=== PATIENT | female | born 1975 | race Hispanic/Latino ===

== ENCOUNTER 2017-05-27 16:12 | Outpatient (CLI) | payer BC, OTHER ==
[2017-05-27 17:06] LABS: Hemoglobin 13.9 g/dL (12.0-16.0); Mean Corpuscular HGB CONC 31.7 g/dL (32.0-36.0); Mean Corpuscular Hemoglobin 29.8 pg (27.0-31.0); Mean Corpuscular Volume 94.2 fl (81.0-99.0); Mean Platelet Volume 8.1 fL (7.4-10.4); Platelet Count 304 thou/uL (130-400); RBC Distribution Width 14.8 % (11.5-14.5); Red Blood Cell (RBC) Count 4.67 mill/uL (4.20-5.40); White Blood Cell (WBC) Count 11.3 thou/uL (4.8-10.8)
[2017-05-27 17:14] LABS: BHCG - Serum Negative (NEGATIVE); Pregs Control Background? CLEAR/WHITE (CLR/WHITE); Pregs Control Bar Appear? YES (CONTROL BAR)
[2017-05-27 17:26] LABS: Anion Gap 8 mmol/L (10-20); BUN (Urea Nitrogen) 15 mg/dL (7.0-18.7); Calc. Creatinine Clearance 0 mL/min (70-130); Calcium 9.1 mg/dL (7.8-10.44); Carbon Dioxide 28 mmol/L (22-29); Chloride 104 mmol/L (98-107); Estimated GFR-MDRD Greater than 90; Glucose 105 mg/dL (70-105); Potassium 3.7 mmol/L (3.5-5.1); Sodium 136 mmol/L (136-145)
--- NOTE | 2017-05-29 09:01 | EKG ---
Test Reason : Blood Pressure : / mmHG Vent. Rate : 075 BPM Atrial Rate : 075 BPM P-R Int : 212 ms QRS Dur : 080 ms QT Int : 374 ms P-R-T Axes : 014 000 001 degrees QTc Int : 417 ms Sinus rhythm with sinus arrhythmia with 1st degree A-V block Minimal voltage criteria for LVH, may be normal variant Inferior infarct , age undetermined , possibly with Q's in III and aVF Abnormal ECG When compared with ECG of 22-MAR-2015 12:38, WI interval has increased Inferior infarct is now Present Confirmed by CRISTI SHAIKH ([id number]) on 05/29/2017 9:00:29 AM Referred By: PARADISE Confirmed By:CRISTI SHAIKH
== END 2017-05-27 16:13 | disposition home or self-care (01) ==
LOC: LABBT 16:12
PROVIDERS: ATTEND Obstetrics & Gynecology
DX: Z01.818 Encounter for other preprocedural examination (principal); N85.00 Endometrial hyperplasia, unspecified; N83.202 Unspecified ovarian cyst, left side
CPT/HCPCS: 80048; 84703; 85027; 86850; 86900; 86901; 93005; 93010

== ENCOUNTER 2017-06-02 07:15 | Day surgery (SDC) | payer BC, OTHER ==
[2017-05-27 16:35] VITALS: BMI 53.7
[2017-06-02] MEDS ORDERED: CEFAZOLIN/Water 2 GM/20 ML SYRINGE ONE (08:36)
--- NOTE | 2017-06-02 09:04 | HP ---
PREOPERATIVE DIAGNOSIS: Persistent left adnexal mass with endometrial hyperplasia. SCHEDULED PROCEDURE: Laparoscopic left oophorectomy with D and C da Yuliet assist. HISTORY OF PRESENT ILLNESS: Ms. Lemus has been my patient since 2016. She has a long history of me norrhagia, At that time a [employer] sono was performed which revealed an endometrial thickness of 10 mm an d a left ovarian cyst measuring 7.5 cm in greatest diameter, no free fluid. at that time revea led complex endometrial hyperplasia without atypia. Repeat ultrasound in May revealed persistent l eft ovarian cyst, slightly smaller but still present, no free fluid noted. The patient desires defin itive surgical management and D and C to be performed to rule out of complex hyperplasia. OB AND [employer] HISTORY: x1, no history of dysplasia. PAST MEDICAL HISTORY: Hypertension and morbid obesity. PAST SURGICAL HISTORY: Cholecystectomy. ALLERGIES: Denies. MEDICATIONS: Lisinopril and OCPs. SOCIAL HISTORY: Denies tobacco, alcohol, or IV drug abuse. FAMILY HISTORY: Noncontributory. REVIEW OF SYSTEMS: Noncontributory. PHYSICAL EXAMINATION: GENERAL: female. VITAL SIGNS: A 5 feet 7 inches, 357 pounds, BMI of 56, blood pressure 118/78. HEENT: Within normal limits. LUNGS: Clear to auscultation bilaterally. HEART: Regular rhythm. BREASTS: No masses bilaterally. ABDOMEN: Soft, nontender, no rebound or guarding. PELVIC: Vulva without lesions. Vagina without discharge. Cervix parous. Uterus unable to apprecia te on bimanual. Adnexa unable to appreciate on bimanual. EXTREMITIES: Without clubbing, cyanosis or edema. RADIOLOGY: Ultrasound with findings as noted in HPI. Laboratory reveals a normal base met hematocri t of 44%. Negative test. Blood type O positive. IMPRESSION: Morbid obesity with complex hyperplasia, no atypia and a persistent left adnexal mass. PROCEDURE: Laparoscopic management of left ovary. Low probability malignancy, we will drain intraab dominally and remove laparoscopically with da Yuliet robot assist, may need to remove the fallopian tu be on that side as well. We will perform D and C hysteroscopy. Anticipate nonmalignant results. Th e patient gives verbal and written informed consent.
[2017-06-02] MEDS ORDERED: Bupivacaine HCl 0.5%/Epinephrine 1:200,000/PF 30 ml Vial ONE (10:05)
[2017-06-02] MEDS ORDERED: Lidocaine 1% (PF) 30 ML VIAL ONE (10:05)
[2017-06-02] MEDS ORDERED: HYDROmorphone 0.5 MG/0.5 ML SYRINGE ONE (10:13)
[2017-06-02] MEDS ORDERED: Fentanyl 100 MCG/2 ML VIAL ONE ×3 (10:13→12:30)
[2017-06-02] MEDS ORDERED: Dexamethasone 20 MG/5 ML VIAL ONE (11:04)
[2017-06-02] MEDS ORDERED: PROPOFOL 200 MG/20 ML VIAL ONE (11:04)
[2017-06-02] MEDS ORDERED: Lidocaine 1% PF 5 ML VIAL ONE (11:04)
[2017-06-02] MEDS ORDERED: Ketorolac Tromethamine 30 MG/ML VIAL ONE (11:04)
[2017-06-02] MEDS ORDERED: Succinylcholine Chloride 20 MG/ML 10 ml SYRINGE FS ONE (11:04)
[2017-06-02] MEDS ORDERED: Ondansetron HCl/PF 4 MG/2 ML Vial ONE (11:04)
[2017-06-02] MEDS ORDERED: Glycopyrrolate 0.2 MG/ML 5 ML SYRINGE ONE (11:04)
[2017-06-02] MEDS ORDERED: SUGAMMADEX SODIUM 200 MG/2 ML VIAL ONE (11:52)
--- NOTE | 2017-06-02 13:32 | OP ---
DATE OF PROCEDURE: 06/02/2017 PREOPERATIVE DIAGNOSIS: A 6 cm simple left ovarian cyst persistent with endometrial hyperplasia. POSTOPERATIVE DIAGNOSIS: A 6 cm simple left ovarian cyst persistent with endometrial hyperplasia. PROCEDURES PERFORMED: Laparoscopic left salpingo-oophorectomy with da Yuliet robot assist and diagnos tic hysteroscopy with dilation and curettage. SURGEON: Jardo Matos M.D. GALVANIZING POT RUNNER: Sridhar Her D.O. ESTIMATED BLOOD LOSS: Less than 25 mL. ANESTHESIA: General endotracheal. MEDICATIONS: Two grams of Ancef preincision. DVT PROPHYLAXIS: SCDs. OPERATIVE FINDINGS: 1. Simple smooth excrescence of a left ovarian cyst with normal appearing omentum. No evidence of m alignancy. 2. Hemostasis, post left salpingo-oophorectomy. 3. Exuberant endometrium consistent with hyperplasia without atypia. Bilateral tubal ostia identifi ed. 4. No evidence of uterine perforation. 5. Minimal fluid loss at the end of hysteroscopy. DISPOSITION: To the recovery room in good condition. DESCRIPTION OF OPERATIVE PROCEDURE: After obtaining proper informed consent, the patient was taken t o the operating room where general endotracheal anesthesia was achieved without difficulty. The akua ent was prepped and draped in dorsal lithotomy position in Ollie stirrups. Side-hand speculum was pl aced in vagina, cervix identified. Hulka manipulator placed inside. Ashford catheter placed. Speculu m and tenaculum were removed and rod machine operator changed his gloves and turned his attention to the abdomina l portion of procedure. Superior aspect of the umbilicus, a 12 mm skin incision was made and a Veres s needle was placed inside the abdominal cavity. Confirmation of entry into peritoneal cavity via sa line drop test. Insufflation carried out to a pressure of 20 because of the patient's extreme morbid obesity. A 12 mm trocar was placed and confirmation entry into the peritoneal cavity while trauma t o the underlying viscera was noted. The patient was placed in Trendelenburg position and right and l eft lateral trocars placed lateral to the epigastric vessels for the da Yuliet as well as an 11 mm ass istant in the right upper quadrant. Fenestrated bipolar placed in the left hand and monopolar scisso r in the right. The left adnexa identified and was noted to be consistent with a benign serous cysta denoma. It was incised sharply, and the fluid suctioned out. The ovary and tube were placed on stre tc and the infundibulopelvic ligament was coagulated adjacent to the ovary. It was transected and c arried through the meso-ovarian to the level of the uteroovarian ligament. It was coagulated as well and into the broad level of the insertion of the fallopian tube into the uterus. This was coagulate d across, transected and the mesosalpinx transected as well. Specimen was excised and good hemostasi s noted on all pedicles. Retrieval bag was placed in the right lower quadrant trocar da Yuliet and th e specimen was removed from the abdominal cavity. Da Yuliet undocked. All trocars removed. Desuffla freddie carbon dioxide. Skin reapproximated x4 using 4-0 Monocryl. Legs were then rotated up and the lka manipulator was removed. Speculum was identified. The cervix was grasped with single tooth jordan culum, sounded to 11 cm, serially dilated to appropriate level. Hysteroscope was introduced, which p ictures were taken and confirming findings as noted in the operative findings and consistent with the patient's previous EMB. No areas looked to be obvious malignancy were noted. The hysteroscope was removed and circumferential curettage was carried out using the small toothed curette. The specimen was removed and sent for pathologic analysis. The tenaculum was removed and no significant bleeding was noted from the anterior lip of the cervix. Ashford catheter removed. The patient is awakened, ext ubated, and taken to recovery room in good condition.
[2017-06-02] MEDS ORDERED: HYDROcodone/Acetaminophen 5/325 mg Tablet ONE (13:47)
[2017-06-02] MEDS ORDERED: Promethazine HCl 25 MG/ML VIAL ONE (13:55)
== END 2017-06-02 14:17 | disposition home or self-care (01) ==
LOC: SDC 07:15
PROVIDERS: ATTEND Obstetrics & Gynecology
PROC: 0UB64ZZ Excision of Left Fallopian Tube, Percutaneous Endoscopic Approach (ICD-10-PCS; principal; 2017-06-02)
PROC: 0UB14ZZ Excision of Left Ovary, Percutaneous Endoscopic Approach (ICD-10-PCS; principal; 2017-06-02)
PROC: 0UDB7ZX Extraction of Endometrium, Via Natural or Artificial Opening, Diagnostic (ICD-10-PCS; principal; 2017-06-02)
PROC: 0UJD8ZZ Inspection of Uterus and Cervix, Via Natural or Artificial Opening Endoscopic (ICD-10-PCS; principal; 2017-06-02)
DX: N83.8 Other noninflammatory disorders of ovary, fallopian tube and broad ligament (principal); N85.00 Endometrial hyperplasia, unspecified; I10 Essential (primary) hypertension; E66.01 Morbid (severe) obesity due to excess calories; Z68.43 Body mass index [BMI] 50.0-59.9, adult; Z79.3 Long term (current) use of hormonal contraceptives; Z79.899 Other long term (current) drug therapy
CPT/HCPCS: 88305; 96374; J0131; J0670; J1100; J1170; J1885; J2001; J2405; J2550; J2704; J2920; J3010; Q9968

== ENCOUNTER 2018-09-15 19:04 | Inpatient (IN) | payer BC ==
[~2018-09-15 19:04] MED LIST: ISOVUE-370 76%-LOCM 1 ML ONE
[2018-09-15] MEDS ORDERED: Piperacillin/Tazobactam 4.5 GM VIAL ONE (19:27)
[2018-09-15] MEDS ORDERED: Sodium Chloride 0.9% 0 ML ONE (19:27)
[2018-09-15] MEDS ORDERED: Morphine 4 MG/ML VIAL ONE (19:36)
[2018-09-15] MEDS ORDERED: Ondansetron PF 4 MG/2 ML Vial ONE (19:36)
[2018-09-15 19:50] LABS: #Basophils 0.1 thou/uL (0.0-0.2); #Lymphocytes 2.5 thou/uL (1.20-3.40); #Monocytes 1.9 thou/uL (0.11-0.59); #Neutrophils 14.4 thou/uL (1.40-6.50); %Basophils 0.3 % (0.0-1.0); %Eosinophils 0.2 % (0.0-10.0); %Lymphocytes 13.4 % (21.0-51.0); %Monocytes 9.8 % (0.0-10.0); %Neutrophils 76.2 % (42.0-75.0); Hemoglobin 14.3 g/dL (12.0-16.0); Mean Corpuscular HGB CONC 33.7 g/dL (32.0-36.0); Mean Corpuscular Volume 95.2 fL (78.0-98.0); Mean Platelet Volume 8.5 fL (7.4-10.4); Platelet Count 253 thou/uL (130-400); RBC Distribution Width 13.1 % (11.5-14.5); Red Blood Cell (RBC) Count 4.47 mill/uL (4.20-5.40); White Blood Cell (WBC) Count 18.9 thou/uL (4.8-10.8)
[2018-09-15 20:13] LABS: ALT (SGPT) 29 U/L (8-55); AST (SGOT) 14 U/L (5-34); Albumin 3.5 g/dL (3.5-5.0); Alkaline Phosphatase 101 U/L (40-150); Anion Gap 13 mmol/L (10-20); BUN (Urea Nitrogen) 7 mg/dL (7.0-18.7); Calc. Creatinine Clearance 0 mL/min (70-130); Carbon Dioxide 24 mmol/L (22-29); Chloride 98 mmol/L (98-107); Estimated GFR-MDRD 90; Globulin 3.5 g/dL (2.4-3.5); Glucose 166 mg/dL (70-105); Lipase 23 U/L (8-78); Potassium 3.8 mmol/L (3.5-5.1); Sodium 131 mmol/L (136-145)
--- NOTE | 2018-09-15 20:39 | CT ---
CT ABDOMEN AND PELVIS WITH IV CONTRAST: 09/15/18 HISTORY: Right lower quadrant abdominal pain and nausea. COMPARISON: None available. FINDINGS: The lung bases are clear. Post cholecystectomy changes are noted. The liver, spleen, pancreas, bilateral adrenal glands, kidneys, and abdominal aorta demonstrates a no rmal CT appearance. The urinary bladder is decompressed and not well evaluated on this exam. The appendix is dilated measuring up to 12 mm with prominent amount of periappendiceal inflammatory c hanges seen suggesting appendicitis. No fluid collection is seen to suggest an abscess, and there is no free intraperitoneal gas identified. No lymphadenopathy is seen. There is a surgical clip seen in the anterior pelvis. There is a hypodense structure seen within the subcutaneous adipose layer right posterior gluteal reg ion measuring 2.8 cm x 1.5 cm. Exact etiology is uncertain. This could be related to small contusion in this region or possibly secondary to prior injection. This is not thought to represent a sebaceous cyst given appearance and location. There are degenerative changes seen in the spine. IMPRESSION: 1. Acute appendicitis. 2. Above findings discussed with LIDYA Leung in the Emergency Department on 09/15/18 at 2026 hours. POS: CANDIS
[2018-09-15 21:49] LABS: Bilirubin Negative (Negative); Blood, Urine Negative (Negative); Clarity Clear (Clear); Glucose, Urine (Dipstick) Normal (Negative); Leukocyte Negative Leu/uL (Negative); Nitrite Negative (Negative); Protein, Urine (Dipstick) Negative (Neg-Trace); Urobilinogen Normal mg/dL (Less than 2)
[2018-09-15 21:54] LABS: Pregnancy Test - Urine (BHCG) Negative (Negative); Pregu Control Background? CLEAR/WHITE (CLR/WHITE); Pregu Control Bar Appear? YES (CONTROL BAR); Specific Gravity 1.049 (1.002-1.036)
[2018-09-15] MEDS ORDERED: Ondansetron PF 4 MG/2 ML Vial IVP PRN (22:08)
[2018-09-15] MEDS ORDERED: Ondansetron ODT 4 MG TAB SL PRN (22:08)
[2018-09-15 22:10] VITALS: BMI 53.8
[2018-09-15] MEDS: Sodium Chloride 0.9% 1,000 ML IV SCH (22:25)
[2018-09-15] MEDS: Morphine 4 MG/ML VIAL SLOW IVP PRN (22:29)
[2018-09-15 23:38] LABS: Lactic Acid 1.8 mmol/L (0.5-2.2)
[2018-09-16] MEDS: Sodium Chloride 0.9% 1,000 ML IV SCH ×2 (01:26→16:13)
[2018-09-16] MEDS: Piperacillin/Tazobactam 4.5 GM in Sodium Chloride 0.9% 100 ML IVPB SCH ×4 (01:27→20:02)
[2018-09-16] MEDS: Morphine 4 MG/ML VIAL SLOW IVP PRN ×2 (02:52→08:10)
[2018-09-16] MEDS ORDERED: Ketorolac Tromethamine 30 MG/ML VIAL IVP PRN (07:57)
[2018-09-16] MEDS ORDERED: Acetaminophen 1,000 MG in Premix Bag 1 BAG IVPB PRN (07:59)
[2018-09-16] MEDS ORDERED: Sodium Chloride 0.9% 1,000 ML IV SCH (08:00)
[2018-09-16] MEDS ORDERED: Ketorolac Tromethamine 30 MG/ML VIAL IVP SCH (08:00)
[2018-09-16] MEDS ORDERED: Acetaminophen 1,000 MG in Premix Bag 1 BAG IVPB SCH (08:00)
--- NOTE | 2018-09-16 08:14 | HP ---
HISTORY OF PRESENT ILLNESS: Jaclyn Lemus is a 43-year-old female, acute onset of pain Wednesday, today is Wednesday. She presented to the emergency room late yesterday evening. She had, had pain in her central abdomen, localizing to her right lower quadrant. She has suffered anorexia and increased pain with movement. In the emergency room, her white count is noted to be 18,000, hemoglobin 14. Basic metabolic profile normal. Bilirubin 2. CAT scan of the abdomen and pelvis obtained reveals changes consistent with appendicitis. ALLERGIES: NONE. TOBACCO: None. ALCOHOL: Occasionally. MEDICATIONS: None routinely. PAST SURGICAL HISTORY: Laparoscopic cholecystectomy, left oophorectomy, and right hand surgery. PAST MEDICAL HISTORY: Hypertension. REVIEW OF SYSTEMS: Ten-point noncontributory. 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 PHYSICAL EXAMINATION: VITAL SIGNS: Height 5 feet 7 inches, 344 pounds, 53 BMI, 98.2 degrees, 107, 122/78. HEAD, EARS, EYES, NOSE AND THROAT: Unremarkable. LUNGS: Clear to auscultation. CARDIAC: Regular rate and rhythm without murmur or gallop. ABDOMEN: Soft, obese, tenderness in right lower quadrant. No guarding or rebound. EXTREMITIES: Unremarkable. No ankle edema. Palpable pulses. NEUROLOGICAL: Intact. LYMPH: No lymphadenopathy at neck, axilla or groin. ASSESSMENT AND PLAN: Acute appendicitis. Recommend laparoscopic video appendectomy. Risks of infection, bleeding, reoperation explained. She consents. Job ID: [id number]
[2018-09-16] MEDS: Scopolamine 1.5 mg/72 hour Patch TD SCH (08:17)
[2018-09-16] MEDS ORDERED: Bupivacaine/Epinephrine 0.25% 30 ML VIAL ONE (11:22)
[2018-09-16] MEDS ORDERED: Fentanyl 100 MCG/2 ML VIAL ONE ×2 (11:27→14:10)
[2018-09-16] MEDS ORDERED: Midazolam HCl 2 mg/2 ml Vial ONE (11:27)
[2018-09-16] MEDS ORDERED: Piperacillin/Tazobactam 4.5 GM in Sodium Chloride 0.9% 100 ML IVPB SCH (12:00)
[2018-09-16] MEDS ORDERED: traMADol HCl 50 MG TAB PO PRN (12:14)
[2018-09-16] MEDS ORDERED: Ondansetron ODT 8 MG TAB SL PRN (13:21)
[2018-09-16] MEDS ORDERED: SUGAMMADEX SODIUM 200 MG/2 ML VIAL ONE (13:21)
[2018-09-16] MEDS ORDERED: Morphine 4 MG/ML VIAL SLOW IVP PRN (13:21)
[2018-09-16] MEDS ORDERED: Ondansetron ODT 8 MG TAB PO PRN (13:21)
[2018-09-16] MEDS ORDERED: Ondansetron HCl/PF 8 MG in Sodium Chloride 0.9% 50 ML IVPB SCH (13:30)
[2018-09-16] MEDS ORDERED: Promethazine HCl 25 MG/ML VIAL IM PRN (13:53)
[2018-09-16] MEDS ORDERED: Promethazine HCl 25 MG/ML VIAL SLOW IVP PRN (13:53)
[2018-09-16] MEDS ORDERED: Ondansetron HCl/PF 4 MG/2 ML Vial IVP PRN (13:53)
--- NOTE | 2018-09-16 14:34 | OP ---
DATE OF PROCEDURE: 09/16/2018 PREOPERATIVE DIAGNOSIS: Gangrenous appendix with abscess. POSTOPERATIVE DIAGNOSIS: Gangrenous appendix with abscess. PROCEDURE PERFORMED: Laparoscopic video appendectomy with placement of drain and drainage of peritoneal abscess. Very complicated procedure due to morbid obesity, requiring a long trocar. ANESTHESIA: General anesthesia, local of 0.5% Marcaine with epinephrine. DESCRIPTION OF PROCEDURE: The patient was taken to the operating room, where under general anesthesia, Ashford catheter was placed at the beginning of the procedure and removed at the end. Abdomen was prepared with ChloraPrep and draped in routine fashion. Local anesthetic was infiltrated in the skin and subcutaneous tissue about each port site. The patient is morbidly obese and landmarks were affected by her obesity. Right lateral subcostal incision was made and pneumoperitoneum to 15 mmHg was obtained with a Veress needle, replaced it with a long 5 port. Another 5 port placed in the mid abdomen under laparoscopic visualization. Lower midline incision made, and a 12 port placed and then exchanged for a longer port due to her morbid obesity. Appendix was well off in the right pelvis. Right tube and ovary were involved. These were bluntly dissected free. Gangrenous appendix dissected free. This was very difficult due to her obesity and inflammation. The mesoappendix was taken down with the LigaSure. Gangrenous appendix and fecalith identified, dissected free down to the cecum. Cecal stump was stapled with the Endo blue load TOM stapler. The appendix then placed in Endobag and removed. Area irrigated. A #19 gold LUPE drain placed in the right pelvis and gutter and secured with 3-0 nylon suture and brought out through the right subcostal port site. Sterile dressing applied. Area irrigated. Irrigant evacuated. Hemostasis noted. All instruments were removed. All skin incisions were approximated with interrupted subdermal 4-0 Monocryl. Job ID: [id number]
[2018-09-16] MEDS: Ketorolac Tromethamine 30 MG/ML VIAL IVP PRN ×2 (16:13→21:34)
[2018-09-16] MEDS: Enoxaparin Sodium 40 MG/0.4 ML SYRINGE SC SCH (20:03)
[2018-09-16] MEDS: traMADol HCl 50 MG TAB PO PRN (21:33)
[2018-09-16] MEDS: Ondansetron ODT 4 MG TAB PO PRN (21:34)
[2018-09-17] MEDS: Piperacillin/Tazobactam 4.5 GM in Sodium Chloride 0.9% 100 ML IVPB SCH ×4 (02:00→20:40)
[2018-09-17] MEDS: Sodium Chloride 0.9% 1,000 ML IV SCH ×3 (02:01→14:57)
[2018-09-17] MEDS: Ketorolac Tromethamine 30 MG/ML VIAL IVP PRN (03:43)
[2018-09-17] MEDS: traMADol HCl 50 MG TAB PO PRN ×3 (03:43→17:52)
[2018-09-17] MEDS: Ondansetron ODT 4 MG TAB PO PRN ×3 (03:44→17:52)
[2018-09-17 04:57] LABS: Anion Gap 11 mmol/L (10-20); BUN (Urea Nitrogen) 8 mg/dL (7.0-18.7); Calc. Creatinine Clearance 269 mL/min (70-130); Carbon Dioxide 23 mmol/L (22-29); Chloride 105 mmol/L (98-107); Estimated GFR-MDRD Greater than 90; Glucose 136 mg/dL (70-105); Potassium 3.6 mmol/L (3.5-5.1); Sodium 135 mmol/L (136-145)
[2018-09-17 05:04] LABS: Band 10 % (5-11); Hemoglobin 12.1 g/dL (12.0-16.0); Lymphocytes 6 % (21-51); MDiff Complete? YES; Mean Corpuscular HGB CONC 33.4 g/dL (32.0-36.0); Mean Corpuscular Hemoglobin 32.5 pg (27.0-31.0); Mean Corpuscular Volume 97.4 fL (78.0-98.0); Mean Platelet Volume 8.1 fL (7.4-10.4); Monocytes 7 % (0-10); Neutrophil 77 % (42-75); Platelet Count 210 thou/uL (130-400); Platelet Morphology Comment Appears Adequate; Red Blood Cell (RBC) Count 3.71 mill/uL (4.20-5.40)
[2018-09-17] MEDS: Ibuprofen 600 MG TAB PO PRN ×2 (08:54→14:46)
--- NOTE | 2018-09-17 10:08 | PRG ---
DATE OF SERVICE: 09/17/2018 SUBJECTIVE: The patient reports the pain is okay. She is tolerating a regular diet. Rare nausea. No flatus or bowel movement yet. OBJECTIVE: VITAL SIGNS: Temperature is 97.5, pulse 70, and blood pressure 108/70. GENERAL: She is awake and alert, does not appear to be in any distress. ABDOMEN: Obese, soft, and moderate tenderness. LABORATORY DATA: Her white counts elevated to 20, H and H 12 and 36, and platelet count 210. Electrolytes, her glucose is 136. ASSESSMENT: Status post ruptured appendectomy. PLAN: Continue antibiotics. Job ID: [id number]
[2018-09-17] MEDS: Acetaminophen 500 MG TAB PO PRN ×2 (11:27→17:53)
[2018-09-17] MEDS: Enoxaparin Sodium 40 MG/0.4 ML SYRINGE SC SCH (20:39)
[2018-09-18] MEDS: Ibuprofen 600 MG TAB PO PRN ×3 (00:20→20:11)
[2018-09-18] MEDS: traMADol HCl 50 MG TAB PO PRN ×4 (00:20→20:11)
[2018-09-18] MEDS: Ondansetron ODT 4 MG TAB PO PRN ×4 (00:21→20:11)
[2018-09-18] MEDS: Piperacillin/Tazobactam 4.5 GM in Sodium Chloride 0.9% 100 ML IVPB SCH ×4 (01:20→20:05)
[2018-09-18] MEDS: Sodium Chloride 0.9% 1,000 ML IV SCH ×3 (01:20→20:05)
--- NOTE | 2018-09-18 13:05 | PRG ---
DATE OF SERVICE: 09/18/2018 SUBJECTIVE: The patient is passing some gas. No bowel movement. She is still having a quite a bit of pain she says, she is still taking a lot of narcotic. OBJECTIVE: VITAL SIGNS: Temperature is 98.1, pulse 81, blood pressure 143/80. GENERAL: She looks good. She is eating a regular diet. ABDOMEN: Morbidly obese. The incisions are healing well. She has had 50 out in her LUPE, that is fairly serous. ASSESSMENT: Status post ruptured appendectomy. PLAN: Continue IV antibiotics. Home soon. Job ID: [id number]
[2018-09-18] MEDS: Ketorolac Tromethamine 30 MG/ML VIAL IVP PRN (13:32)
[2018-09-18] MEDS: Enoxaparin Sodium 40 MG/0.4 ML SYRINGE SC SCH (20:05)
[2018-09-19] MEDS: Sodium Chloride 0.9% 1,000 ML IV SCH ×2 (01:13→02:31)
[2018-09-19] MEDS: Piperacillin/Tazobactam 4.5 GM in Sodium Chloride 0.9% 100 ML IVPB SCH ×2 (02:29→09:05)
[2018-09-19] MEDS: Ondansetron ODT 4 MG TAB PO PRN ×2 (02:30→09:08)
[2018-09-19] MEDS: Ibuprofen 600 MG TAB PO PRN ×2 (02:30→09:18)
[2018-09-19] MEDS: traMADol HCl 50 MG TAB PO PRN ×2 (02:30→09:06)
[2018-09-19 06:21] LABS: #Eosinphils 0.1 thou/uL (0.0-0.7); #Lymphocytes 1.5 thou/uL (1.20-3.40); #Monocytes 0.7 thou/uL (0.11-0.59); #Neutrophils 5.1 thou/uL (1.40-6.50); %Basophils 0.3 % (0.0-1.0); %Eosinophils 1.9 % (0.0-10.0); %Lymphocytes 20.2 % (21.0-51.0); %Neutrophils 68.6 % (42.0-75.0); Hemoglobin 10.8 g/dL (12.0-16.0); Mean Corpuscular HGB CONC 32.9 g/dL (32.0-36.0); Mean Corpuscular Hemoglobin 32.5 pg (27.0-31.0); Mean Corpuscular Volume 98.8 fL (78.0-98.0); Mean Platelet Volume 7.9 fL (7.4-10.4); Platelet Count 244 thou/uL (130-400); RBC Distribution Width 12.9 % (11.5-14.5); Red Blood Cell (RBC) Count 3.33 mill/uL (4.20-5.40); White Blood Cell (WBC) Count 7.5 thou/uL (4.8-10.8)
[2018-09-19] MEDS: Scopolamine 1.5 mg/72 hour Patch TD SCH (09:05)
[2018-09-19 11:28] VITALS: BP 126/85; TEMP 97.8
--- NOTE | 2018-09-19 12:40 | PRG ---
DATE OF SERVICE: 09/19/2018 SUBJECTIVE: Jaclyn Lemus is doing well today. She is afebrile. Her white count is normal. LUPE drainage is serous and decreased volume. OBJECTIVE: LUNGS: Clear to auscultation. CARDIAC: Regular rate and rhythm without murmur or gallop. ABDOMEN: Soft, obese, nontender. ASSESSMENT: Acute appendicitis. PLAN: Discharge home on Augmentin, Ultram, Motrin, Tylenol p.r.n. pain. Follow up in my office in 2 to 3 weeks. She is interested in bariatric surgery, we will give her information. She will take off work for a week and return to work a week from now on September 26. Job ID: [id number]
--- NOTE | 2018-09-19 16:01 | DIS ---
DATE OF ADMISSION: 09/15/2018 DATE OF DISCHARGE: 09/19/2018 DISCHARGE DIAGNOSES: 1. Acute appendicitis. 2. Status post laparoscopic cholecystectomy. 3. Morbid obesity, 53 body mass index, 5 feet 7 inches, and 344 pounds. HISTORY AND HOSPITAL COURSE: A 43-year-old female, who presents to the emergency room with neglected appendicitis. She has had pain for 2 to 3 days[address] CAT scan revealed findings consistent with appendicitis. She will receive intravenous antibiotics and fluids and overnight and the next morning, underwent laparoscopic video appendectomy. Postoperatively, she did well. She was kept in the hospital due to a gangrenous appendix with inflammation and a preoperative fever. She convalesced, taking her diet. She did not have a fever. White count is normal. LUPE drain is removed. She would be discharged home. Job ID: [id number]
[2018-09-19] MEDS ORDERED: Amoxicillin/Potassium Clav 875 MG TAB PO SCH (21:00)
== END 2018-09-19 15:45 | disposition home or self-care (01) | DRG 339 ==
LOC: ERS 19:04 → SURG A 20:51 → OBSVTOIN 20:51
PROVIDERS: ADMIT Specialist; ATTEND Specialist
PROC: 0DTJ4ZZ Resection of Appendix, Percutaneous Endoscopic Approach (ICD-10-PCS; principal; 2018-09-16)
PROC: 0D9W40Z Drainage of Peritoneum with Drainage Device, Percutaneous Endoscopic Approach (ICD-10-PCS; 2018-09-16)
DX: K35.33 Acute appendicitis with perforation, localized peritonitis, and gangrene, with abscess (principal); Z68.43 Body mass index [BMI] 50.0-59.9, adult; K35.891 Other acute appendicitis without perforation, with gangrene; E66.01 Morbid (severe) obesity due to excess calories; Z90.49 Acquired absence of other specified parts of digestive tract
CPT/HCPCS: 36415; 74177; 80048; 80053; 81003; 81025; 83605; 83690; 84484; 85025; 87040; 88304; 93005; 96361; 96365; 96366; 96375; J0131; J1650; J1885; J2250; J2270; J2405; J2543; J3010; J3490; Q0162

== ENCOUNTER 2018-11-23 09:53 | Outpatient (CLI) | payer BC ==
--- NOTE | 2018-12-13 10:43 | MMO ---
Bilateral MAMMO Bilat Screen [facility]. CLINICAL HISTORY: Patient is 43 years old and is seen for screening. The patient has no family history of breast cancer. The patient has no personal history of cancer. VIEWS: The views performed were: bilateral craniocaudal with tomosynthesis; bilateral mediolateral oblique with tomosynthesis; left craniocaudal; and left mediolateral. FILMS COMPARED: The present examination has been compared to a prior imaging study performed at [facility] on 04/05/2015. This study has been interpreted with the assistance of computer-aided detection. MAMMOGRAM FINDINGS: There are scattered fibroglandular densities. There are no suspicious masses, suspicious calcifications, or new areas of architectural distortion. IMPRESSION: THERE IS NO MAMMOGRAPHIC EVIDENCE OF MALIGNANCY. A ROUTINE FOLLOW-UP MAMMOGRAM IN 1 YEAR IS RECOMMENDED. THE RESULTS OF THIS EXAM WERE SENT TO THE PATIENT. ACR BI-RADS Category 1 - Negative MAMMOGRAPHY NOTE: 1. A negative mammogram report should not delay a biopsy if a dominant of clinically suspicious mass is present. 2. Approximately 10% to 15% of breast cancers are not detected by mammography. 3. Adenosis and dense breasts may obscure an underlying neoplasm. Reported by: BASHIR SETH MD Electonically Signed: [id number]
== END 2018-11-23 09:54 | disposition home or self-care (01) ==
LOC: BICMAMMO 09:53
PROVIDERS: ATTEND Family Medicine
DX: Z12.31 Encounter for screening mammogram for malignant neoplasm of breast (principal)
CPT/HCPCS: 77063; 77067

== ENCOUNTER 2019-02-27 10:29 | Outpatient (CLI) | payer BC ==
--- NOTE | 2019-02-27 10:42 | RAD ---
Exam:2 views right hand HISTORY: Pain in the first digit COMPARISON: None FINDINGS: Mildly displaced fracture involving the proximal aspect of the proximal joint space of the first digit. There is extension into the first metacarpal phalangeal joint space. No additional fractures. IMPRESSION: Intra-articular extension of a displaced fracture of the proximal aspect of the proximal phalanx of the first digit.
== END 2019-02-27 10:30 | disposition home or self-care (01) ==
LOC: BICRAD 10:29
PROVIDERS: ATTEND Family Medicine
DX: M79.644 Pain in right finger(s) (principal); S62.511A Displaced fracture of proximal phalanx of right thumb, initial encounter for closed fracture
CPT/HCPCS: 80053; 80061; 83036

== ENCOUNTER 2019-12-25 15:49 | Outpatient (CLI) | payer BC ==
--- NOTE | 2019-12-25 16:22 | MMO ---
Bilateral MAMMO Bilat Screen [facility]. CLINICAL HISTORY: Patient is 44 years old and is seen for screening. The patient has no family history of breast cancer. The patient has no personal history of cancer. VIEWS: The views performed were: bilateral craniocaudal with tomosynthesis and bilateral mediolateral oblique with tomosynthesis. FILMS COMPARED: The present examination has been compared to [place] [facility] [place], and at [facility] on 04/05/2015. This study has been interpreted with the assistance of computer-aided detection. MAMMOGRAM FINDINGS: The breasts are almost entirely fat. There are no suspicious masses, suspicious calcifications, or new areas of architectural distortion. IMPRESSION: THERE IS NO MAMMOGRAPHIC EVIDENCE OF MALIGNANCY. A ROUTINE FOLLOW-UP MAMMOGRAM IN 1 YEAR IS RECOMMENDED. THE RESULTS OF THIS EXAM WERE SENT TO THE PATIENT. ACR BI-RADS Category 1 - Negative MAMMOGRAPHY NOTE: 1. A negative mammogram report should not delay a biopsy if a dominant of clinically suspicious mass is present. 2. Approximately 10% to 15% of breast cancers are not detected by mammography. 3. Adenosis and dense breasts may obscure an underlying neoplasm. Reported by: HERNANDEZ HERMOSILLO MD Electonically Signed: [id number]
== END 2019-12-25 15:50 | disposition home or self-care (01) ==
LOC: BICMAMMO 15:49
PROVIDERS: ATTEND Family Medicine
DX: Z12.31 Encounter for screening mammogram for malignant neoplasm of breast (principal)
CPT/HCPCS: 77063; 77067

== ENCOUNTER 2021-02-24 11:49 | Emergency (ER) | payer BC ==
[~2021-02-24 11:49] MED LIST changes: -ISOVUE-370 76%-LOCM 1 ML ONE; +Iopamidol-370 76% 500 ML 1 ML ONE
[2021-02-24 12:50] LABS: #Eosinphils 0.1 thou/uL (0.0-0.7); #Lymphocytes 1.3 thou/uL (1.20-3.40); #Monocytes 0.8 thou/uL (0.11-0.59); #Neutrophils 5.7 thou/uL (1.40-6.50); %Basophils 0.4 % (0.0-1.0); %Eosinophils 1.3 % (0.0-10.0); %Lymphocytes 16.2 % (21.0-51.0); %Monocytes 10.2 % (0.0-10.0); %Neutrophils 71.9 % (42.0-75.0); Hemoglobin 14.7 g/dL (12.0-16.0); Mean Corpuscular HGB CONC 33.8 g/dL (32.0-36.0); Mean Corpuscular Hemoglobin 33.7 pg (27.0-31.0); Mean Corpuscular Volume 99.9 fL (78.0-98.0); Mean Platelet Volume 7.7 fL (7.4-10.4); Platelet Count 263 thou/uL (130-400); RBC Distribution Width 12.4 % (11.5-14.5); Red Blood Cell (RBC) Count 4.36 mill/uL (4.20-5.40)
[2021-02-24 13:13] LABS: ALT (SGPT) 42 U/L (8-55); AST (SGOT) 21 U/L (5-34); Albumin 3.5 g/dL (3.5-5.0); Alkaline Phosphatase 112 U/L (40-110); Anion Gap 13 mmol/L (10-20); BUN (Urea Nitrogen) 10 mg/dL (7.0-18.7); Bilirubin, Total 0.7 mg/dL (0.2-1.2); Calc. Creatinine Clearance 0 mL/min (70-130); Calcium 9.6 mg/dL (7.8-10.44); Carbon Dioxide 23 mmol/L (22-29); Chloride 102 mmol/L (98-107); Globulin 3.8 g/dL (2.4-3.5); Glucose 107 mg/dL (70-105); Lipase 28 U/L (8-78); Potassium 4.1 mmol/L (3.5-5.1); Protein, Total 7.3 g/dL (6.0-8.3); Sodium 134 mmol/L (136-145)
[2021-02-24 13:47] LABS: Bilirubin Negative (Negative); Blood, Urine Negative (Negative); Clarity Clear (Clear); Glucose, Urine (Dipstick) Normal (Negative); Ketone, Urine Negative (Negative); Leukocyte Negative Leu/uL (Negative); Nitrite Negative (Negative); Protein, Urine (Dipstick) Negative (Neg-Trace); Specific Gravity, Urine 1.004 (1.002-1.036); Urobilinogen Normal mg/dL (Less than 2)
[2021-02-24] MEDS ORDERED: Ondansetron PF 4 MG/2 ML Vial ONE (16:04)
[2021-02-24] MEDS ORDERED: Morphine 4 MG/ML VIAL ONE (16:04)
[2021-02-24 17:05] LABS: BHCG - Serum Negative (NEGATIVE); Pregs Control Background? CLEAR/WHITE (CLR/WHITE); Pregs Control Bar Appear? YES (CONTROL BAR)
== END 2021-02-24 19:05 | disposition home or self-care (01) ==
LOC: ERS 11:49
DX: K92.1 Melena (principal); R10.84 Generalized abdominal pain; I10 Essential (primary) hypertension; E78.5 Hyperlipidemia, unspecified; K21.9 Gastro-esophageal reflux disease without esophagitis; Z79.899 Other long term (current) drug therapy
CPT/HCPCS: 36415; 74177; 80053; 81003; 83690; 84703; 85025; 96374; 96375; J2270; J2405; Q9967

== ENCOUNTER 2021-02-26 11:46 | Outpatient (CLI) | payer BC ==
[2021-02-26 21:35] LABS: SARS-CoV-2 PCR by NAA Not Detected (NotDetected)
== END 2021-02-26 11:47 | disposition home or self-care (01) ==
LOC: LABBT 11:46
PROVIDERS: ATTEND Internal Medicine Gastroenterology
DX: Z01.812 Encounter for preprocedural laboratory examination (principal); M54.9 Dorsalgia, unspecified; K62.5 Hemorrhage of anus and rectum; Z20.822 Contact with and (suspected) exposure to COVID-19
CPT/HCPCS: U0003; U0005

== ENCOUNTER 2021-03-03 05:34 | Day surgery (SDC) | payer BC ==
[2021-02-26 10:50] VITALS: BMI 49.9
[2021-03-03] MEDS ORDERED: Ketamine 50 MG/ML (10ML VIAL) ONE (07:37)
[2021-03-03] MEDS ORDERED: PROPOFOL 200 MG/20 ML VIAL ONE (09:01)
[2021-03-03] MEDS ORDERED: Lidocaine 1% PF 5 ML VIAL ONE (09:01)
[2021-03-03] MEDS ORDERED: ePHEDrine 50 MG/ML VIAL ONE (09:01)
[2021-03-03] MEDS ORDERED: Midazolam HCl 2 mg/2 ml Vial ONE (09:07)
== END 2021-03-03 10:53 | disposition home or self-care (01) ==
LOC: SDC 05:34
PROVIDERS: ATTEND Internal Medicine Gastroenterology
PROC: 0DBN8ZX Excision of Sigmoid Colon, Via Natural or Artificial Opening Endoscopic, Diagnostic (ICD-10-PCS; principal; 2021-03-03)
PROC: 0DJ08ZZ Inspection of Upper Intestinal Tract, Via Natural or Artificial Opening Endoscopic (ICD-10-PCS; principal; 2021-03-03)
DX: K63.5 Polyp of colon (principal); K64.8 Other hemorrhoids; R10.13 Epigastric pain; K21.9 Gastro-esophageal reflux disease without esophagitis; I10 Essential (primary) hypertension; E78.00 Pure hypercholesterolemia, unspecified; Z79.899 Other long term (current) drug therapy; Z88.8 Allergy status to other drugs, medicaments and biological substances
CPT/HCPCS: 88305; J2250; J2704; J3490

== ENCOUNTER 2021-05-16 08:50 | Outpatient (CLI) | payer BC | END 2021-05-16 08:51 | disposition home or self-care (01) | LOC: BICMAMMO 08:50 | PROVIDERS: ATTEND Family Medicine | DX: Z12.31 Encounter for screening mammogram for malignant neoplasm of breast (principal) | CPT/HCPCS: 77063; 77067 ==

== ENCOUNTER 2022-05-15 13:38 | Outpatient (CLI) | payer BC | END 2022-05-15 13:39 | disposition home or self-care (01) | LOC: DTY/OP 13:38 | PROVIDERS: ATTEND Surgery | DX: E66.01 Morbid (severe) obesity due to excess calories (principal); I10 Essential (primary) hypertension; E78.2 Mixed hyperlipidemia | CPT/HCPCS: 97802 ==

== ENCOUNTER 2022-09-18 13:00 | Inpatient (IN) | payer BC ==
[2022-09-22 11:23] VITALS: BMI 57.3
[2022-10-01] MEDS ORDERED: EPINEPHrine 1 MG/ML AMP ONE (06:46)
[2022-10-01] MEDS ORDERED: Bupivacaine 0.25% HCL 30 ML VIAL ONE (06:46)
[2022-10-01] MEDS ORDERED: fentaNYL PF 100 MCG/2 ML SYRINGE ONE (06:55)
[2022-10-01] MEDS ORDERED: Ketamine 50 MG/ML (10ML VIAL) ONE (06:55)
[2022-10-01] MEDS ORDERED: Propofol 500 MG/50 ML VIAL ONE (06:55)
[2022-10-01] MEDS ORDERED: SUGAMMADEX SODIUM 200 MG/2 ML VIAL ONE ×2 (06:55→07:31)
[2022-10-01] MEDS ORDERED: Heparin 5,000 UNITS/ML VIAL ONE (07:00)
[2022-10-01] MEDS ORDERED: CEFAZOLIN 2 GM VIAL ONE (07:00)
[2022-10-01] MEDS ORDERED: Sodium Chloride 0.9% 100 ML ONE (07:00)
[2022-10-01] MEDS ORDERED: Rocuronium Bromide 10 MG/ML (10ML VIAL) ONE (07:38)
[2022-10-01] MEDS ORDERED: Ondansetron PF 4 MG/2 ML Vial ONE ×2 (07:38→09:51)
[2022-10-01] MEDS ORDERED: Esmolol 100 MG/10 ML VIAL ONE (07:38)
[2022-10-01] MEDS ORDERED: Ketorolac Tromethamine 30 MG/ML VIAL ONE (07:38)
[2022-10-01] MEDS ORDERED: Lidocaine 1% PF 5 ML VIAL ONE (07:38)
[2022-10-01] MEDS ORDERED: Glycopyrrolate 0.2 MG/ML 5 ML SYRINGE ONE (07:38)
[2022-10-01] MEDS ORDERED: Dexamethasone 20 MG/5 ML VIAL ONE (07:38)
[2022-10-01] MEDS ORDERED: PROPOFOL 200 MG/20 ML VIAL ONE (07:38)
[2022-10-01] MEDS ORDERED: diphenhydrAMINE 50 MG/ML VIAL IVP PRN ×2 (08:36→09:19)
[2022-10-01] MEDS ORDERED: FENTANYL 500 MCG/10 ML VIAL 2,000 MCG in Sodium Chloride 0.9% 60 ML IV PRN (08:36)
[2022-10-01] MEDS ORDERED: Naloxone HCl 0.4 mg/ml Vial IV PRN (08:36)
[2022-10-01] MEDS ORDERED: diphenhydrAMINE 50 MG/ML VIAL IM PRN (08:36)
[2022-10-01] MEDS ORDERED: Promethazine HCl 25 MG/ML VIAL IM PRN ×3 (08:36→09:19)
[2022-10-01] MEDS ORDERED: Ondansetron HCl/PF 4 MG/2 ML Vial IVP PRN (08:36)
[2022-10-01] MEDS ORDERED: diphenhydrAMINE 25 MG CAP PO PRN (08:36)
[2022-10-01] MEDS ORDERED: Ondansetron PF 4 MG/2 ML Vial IVP PRN ×2 (08:36→09:19)
[2022-10-01] MEDS ORDERED: Communication Order-Pharmacy FS SCH (08:45)
[2022-10-01] MEDS ORDERED: hydrALAZINE 20 MG/ML VIAL SLOW IVP PRN (09:19)
[2022-10-01] MEDS ORDERED: Dextrose 5% in Water 1,000 ML IV PRN (09:19)
[2022-10-01] MEDS ORDERED: Ipratropium/Albuterol 3 ML NEB NEB PRN (09:19)
[2022-10-01] MEDS ORDERED: Dextrose 50% Abboject 50 ML SYRINGE SLOW IVP PRN (09:19)
[2022-10-01] MEDS ORDERED: Hydrocodone-Acetamin 15 ML UDCUP PO PRN (09:19)
[2022-10-01] MEDS ORDERED: Glucagon 1 MG/ML KIT IM PRN (09:19)
[2022-10-01] MEDS ORDERED: Promethazine HCl 25 MG/ML VIAL ONE (11:03)
[2022-10-01] MEDS: Pantoprazole 40 MG VIAL IVP SCH (17:13)
[2022-10-01] MEDS: Lisinopril 20 MG TAB PO SCH (17:13)
[2022-10-01] MEDS: D5 1/2 NS w/20 mEq KCL 1,000 ML IV SCH (17:13)
[2022-10-02] MEDS: D5 1/2 NS w/20 mEq KCL 1,000 ML IV SCH ×3 (00:20→08:55)
[2022-10-02 05:13] LABS: #Neutrophils 6.8 thou/uL (1.40-6.50); %Basophils 0.3 % (0.0-1.0); %Eosinophils 0.2 % (0.0-10.0); %Lymphocytes 18.7 % (21.0-51.0); %Monocytes 10.3 % (0.0-10.0); %Neutrophils 70.3 % (42.0-75.0); Hematocrit 39.1 % (36.0-47.0); Hemoglobin 12.7 g/dL (12.0-16.0); Mean Corpuscular HGB CONC 32.5 g/dL (32.0-36.0); Mean Corpuscular Hemoglobin 32.1 pg (27.0-31.0); Mean Corpuscular Volume 98.7 fl (78.0-98.0); Mean Platelet Volume 10.8 fL (7.4-10.4); Platelet Count 229 10x3/uL (130-400); RBC Distribution Width 13.6 % (11.5-14.5); Red Blood Cell (RBC) Count 3.96 mill/uL (4.20-5.40); White Blood Cell (WBC) Count 9.7 10x3/uL (4.8-10.8)
[2022-10-02 05:36] LABS: Anion Gap 11 mmol/L (10-20); BUN (Urea Nitrogen) 6 mg/dL (7.0-18.7); Calc. Creatinine Clearance 247 mL/min (70-130); Calcium 8.7 mg/dL (7.8-10.44); Carbon Dioxide 25 mmol/L (22-29); Chloride 104 mmol/L (98-107); Estimated GFR 107; Glucose 139 mg/dL (70-105); Potassium 3.9 mmol/L (3.5-5.1); Sodium 136 mmol/L (136-145)
[2022-10-02] MEDS: Hydrocodone-Acetamin 15 ML UDCUP PO PRN ×2 (06:20→11:00)
[2022-10-02] MEDS: Lisinopril 20 MG TAB PO SCH (08:55)
[2022-10-02] MEDS: Pantoprazole 40 MG VIAL IVP SCH (08:55)
[2022-10-02 11:37] VITALS: BP 115/73; TEMP 98.1
== END 2022-10-02 14:28 | disposition home or self-care (01) | DRG 621 ==
LOC: SURG A 10-01 05:58 → SURG B 10-01 13:57
PROVIDERS: ADMIT Surgery; ATTEND Surgery
PROC: 0DB64Z3 Excision of Stomach, Percutaneous Endoscopic Approach, Vertical (ICD-10-PCS; principal; 2022-10-01)
PROC: 8E0W4CZ Robotic Assisted Procedure of Trunk Region, Percutaneous Endoscopic Approach (ICD-10-PCS; 2022-10-01)
DX: E66.01 Morbid (severe) obesity due to excess calories (principal); E78.2 Mixed hyperlipidemia; I10 Essential (primary) hypertension; Z68.43 Body mass index [BMI] 50.0-59.9, adult; Z79.899 Other long term (current) drug therapy; Z90.49 Acquired absence of other specified parts of digestive tract; Z82.49 Family history of ischemic heart disease and other diseases of the circulatory system
CPT/HCPCS: 36415; 80048; 85025; 88307; C9113; J0171; J1100; J1644; J1650; J1885; J2405; J2550; J2704; J3480; J3490; S0020

== ENCOUNTER 2022-10-11 07:16 | Emergency (ER) | payer BC ==
[2022-10-11 08:33] LABS: #Eosinphils 0.2 thou/uL (0.0-0.7); #Monocytes 0.9 thou/uL (0.11-0.59); #Neutrophils 7.2 thou/uL (1.40-6.50); %Basophils 0.3 % (0.0-1.0); %Eosinophils 1.8 % (0.0-10.0); %Monocytes 9.2 % (0.0-10.0); %Neutrophils 70.4 % (42.0-75.0); Hematocrit 44.4 % (36.0-47.0); Hemoglobin 14.1 g/dL (12.0-16.0); Mean Corpuscular HGB CONC 31.8 g/dL (32.0-36.0); Mean Corpuscular Hemoglobin 32.1 pg (27.0-31.0); Mean Corpuscular Volume 101.1 fl (78.0-98.0); Platelet Count 277 10x3/uL (130-400); RBC Distribution Width 14.2 % (11.5-14.5); Red Blood Cell (RBC) Count 4.39 mill/uL (4.20-5.40); White Blood Cell (WBC) Count 10.2 10x3/uL (4.8-10.8)
[2022-10-11 08:56] LABS: ALT (SGPT) 38 U/L (8-55); AST (SGOT) 21 U/L (5-34); Albumin 3.8 g/dL (3.5-5.0); Alkaline Phosphatase 123 U/L (40-110); Anion Gap 14 mmol/L (10-20); BUN (Urea Nitrogen) 10 mg/dL (7.0-18.7); Bilirubin, Total 0.9 mg/dL (0.2-1.2); Calc. Creatinine Clearance 0 mL/min (70-130); Calcium 9.5 mg/dL (7.8-10.44); Carbon Dioxide 28 mmol/L (22-29); Chloride 101 mmol/L (98-107); Estimated GFR 89; Globulin 3.3 g/dL (2.4-3.5); Glucose 106 mg/dL (70-105); Lipase 23 U/L (8-78); Magnesium 1.9 mg/dL (1.6-2.6); Potassium 4.3 mmol/L (3.5-5.1); Protein, Total 7.1 g/dL (6.0-8.3); Sodium 139 mmol/L (136-145)
== END 2022-10-11 11:28 | disposition home or self-care (01) ==
LOC: ERS 07:16
DX: R11.2 Nausea with vomiting, unspecified (principal); L25.1 Unspecified contact dermatitis due to drugs in contact with skin; I10 Essential (primary) hypertension; E78.5 Hyperlipidemia, unspecified; K21.9 Gastro-esophageal reflux disease without esophagitis; Z79.899 Other long term (current) drug therapy
CPT/HCPCS: 36415; 80053; 83690; 83735; 85025; 93005; 96360